=== PATIENT | female | born 1950 | race Caucasian/White ===

== ENCOUNTER → 2018-01-17 13:20 | Outpatient (CLI) | payer OTHER ==
[2016-04-28 12:32] VITALS: BMI 28.5
[~2018-01-17 13:20] MED LIST: CIPRO500 MG PO; COUMADIN5 MG PO; ELIQUIS5 MG PO; FLAGYL500 MG PO; GOLYTELY; HYDROCODONE-APA1 TAB PO; LOVASTATIN20 MG PO; LOVENOX60 MG/0.6 SC; Mevacor PO; NICODERM C1 PATCH .1 TRANSDERM
== END | disposition home or self-care (01) ==
LOC: D.CT 01-14 15:00
DX: I63.9 Cerebral infarction, unspecified (principal)

== ENCOUNTER 2018-02-05 11:15 | Outpatient (CLI) | payer OTHER ==
[~2018-02-05] VITALS: Ht 157.5 cm; Wt 81.8 kg
--- NOTE | ~2018-02-05 | OP ---
PATIENT NAME: SEAN MOLINA MEDICAL RECORD: [id number] :52 LOCATION:D.CAT ADMISSION DATE: SURGEON: BRAXTON SCOTT MD DATE OF OPERATION: 02/05/2018 PROCEDURE: Left heart cath, +4-vessel arteriography, right femoral artery approach. CATHETERS: A 5-Albanian sheath, 5/4 left and right Simon, 5/4 pig. The procedure was well tolerated. The patient returned to sage, sheath removed. Adequate hemostasis was obtained. FINDINGS: Left ventriculography in 30-degree SHIPMAN view: Normal wall motion, normal systolic function. CORONARY ANATOMY. LEFT MAIN: Left main is free of disease. LAD: Free of disease in the diagonal system. CIRCUMFLEX: Free of disease in the marginal system. RIGHT CORONARY ARTERY: Somewhat codominant system, free of disease. The right coronary diagnostic catheter replaced in the right common carotid artery, right common carotid shows no significant stenosis. The right internal carotid is occluded at its origin, right external carotid shows no significant stenosis. Left common carotid shows no significant stenosis. Left external carotid, no significant stenosis. Left internal carotid shows about 50% stenosis in the mid portion. IMPRESSION: 1. Normal coronary anatomy. 2. Normal left ventricular function. 3. Totally occluded right internal carotid artery. 4. A 50% stenosis in left internal carotid, this can be followed longitudinally with a Doppler velocity check for increased velocity across the obstruction. Obviously symptoms warrant ___ intervention at that time. TRANSINT:[id number] Voice Confirmation ID: [id number] DOCUMENT ID: [id number] BRAXTON SCOTT MD at 1325 CC: [id number] DICTATION DATE: 02/05/18 1450 ROUTE DELIVERY MANAGER: 02/05/18 1639 DEP CLI 02/05/18 [facility] [address] [place] [address]
--- NOTE | ~2018-02-05 | HEMODYNAMI ---
PATIENT:SEAN MOLINA MEDICAL RECORD: [id number] : 52 LOCATION:DPoolPAGE ADMISSION DATE: 02/05/18 Generatedon:02/05/201814:57 Patient name: SEAN MOLINA Patient #: [id number] SSN: : 1950 Date of study: 02/05/2018 Page: Of Hemodynamic Procedure Report Patient Data Patient Demographics Procedure consent was obtained First Name: SEAN Gender: Female Last Name: TRACY : 1950 [facility] Initial: [place] Age: 67 year(s) Patient #: [id number] Race: Unknown Additional ID: [id number] Contact details Address: [address] [place] [address] State: [place] City: [place] Zip code: [address] Past Medical History Allergies Allergen Reaction Date Comments Reported Other allergy 02/05/2018 Admission Admission Data Admission Date: 02/05/2018 Admission Time: 11:15 Height (in.): 62 BSA: 1.83 (m2) Height (cm.): 157.48 BMI: 32.92 (kg/m2) Weight (lbs.): 180 Weight (kg.): 81.65 Procedure Procedure Types Cath Procedure Diagnostic Procedure [facility] w/Coronaries Peripheral Cath Diagnostic Procedure 4-Vessel Bilateral Carotid Arteriogram Procedure Description Procedure Date Procedure Date: 02/05/2018 Procedure Start Time: 14:32 Procedure End Time: 14:45 Procedure Staff Name Function Nichole Huston RT Monitor Judi Horowitz RT Scrub Makenzie Vera RN Nurse Isaac Molina MD Performing Physician Procedure Data Cath Procedure Fluoroscopy Diagnostic fluoroscopy Total fluoroscopy Time: 3.4 time: 3.4 min min Diagnostic fluoroscopy Total fluoroscopy dose: 492 dose: 492 mGy mGy Contrast Material Contrast Material Type Amount (ml) Isovue 300 104 Entry Location Entry Primary Successful Side Size Upsize Upsize Entry Closure Succes sful Closure Location (Fr) 1 (Fr) 2 (Fr) Remarks Device Remarks Femoral Right 5 Fr Exoseal artery Estimated blood loss: 10 ml Diagnostic catheters Device Type Used For End Catheter Placement MULTIPACK JL 4.0 5Fr catheter MULTIPACK 3DRC 5Fr Procedure catheter MULTIPACK Pigtail 5 Fr Procedure catheter Procedure Medications Medication Administration Route Dosage Oxygen NC 2 l/min Lidocaine 2% added to field 20 Heparin Flush Bag added to field 2 bags (1000units/500ml NS) 0.9% NaCl I.V. 100 ml/hr Versed I.V. 2 mg Fentanyl I.V. 50 mcg Versed I.V. 2 mg Fentanyl I.V. 50 mcg Versed I.V. 1 mg Fentanyl I.V. 50 mcg Versed I.V. 1 mg Hemodynamics Rest BSA: 1.83 (m2) O2 Consumption: Estimated: 185.69 (ml/min) O2 Consumption indexed : Estimated:101.47 (ml/min/m) Heart Rate: 92 (bpm) Pressure Samples Time Site Value (mmHg) Purpose Heart Use Rate(bpm) 14:42 LV 128/11,14 Snapshot 86 14:42 AO 150/76(109) Pullback 94 Gradients Valve Time Site Site 2 Mean SEP/DFP Peak To Heart Use 1 (mmHg) (sec/min) Peak Rate (mmHg) (bpm) Aortic 14:42 LV AO 94 150/76(109) Snapshots Pre Cath Intra NCS Post Cath Vital Signs Time Heart Resp SPO2 etCO2 NIBP (mmHg) Rhythm Pain Sedation Rate (ipm) (%) (mmHg) Status Level (bpm) 14:27:43 93 18 97 30.8 154/74(117) NSR 0 (11) 10(A) , No pain 14:32:05 88 20 98 27.7 159/73(107) NSR 0 (11) 10(A) , No pain 14:36:29 88 15 94 21 158/65(116) NSR 0 (11) 10(A) , No pain 14:40:55 92 14 96 27 131/65(71) NSR 0 (11) 10(A) , No pain 14:45:09 87 15 98 28.5 146/73(112) NSR 0 (11) 10(A) , No pain 14:51:43 83 15 96 21 123/62(97) NSR 0 (11) 10(A) , No pain Medications Time Medication Route Dose Verified Delivered Reason Notes Effe ctiveness by by 14:27:08 Oxygen NC 2 Santi Buffie used for l/min Isauro Vera RN procedure 14:27:16 Lidocaine 2% added 20ml Santi Santi for local to vial Isauro Box MD anesthetic field 14:27:28 Heparin Flush added 2 Santi Santi used for Bag to bags Isauro Box MD procedure (1000units/500ml field NS) 14:27:36 0.9% NaCl I.V. 100 Santi Buffie Per ml/hr Isauro Vera RN physician 14:30:33 Versed I.V. 2 mg Santi Buffie for Isauro Vera RN sedation 14:30:39 Fentanyl I.V. 50 Santi Buffie for mcg Isauro Vera RN sedation 14:33:59 Versed I.V. 2 mg Santi Buffie for Isauro Vera RN sedation 14:34:03 Fentanyl I.V. 50 Santi Buffie for mcg Isauro Vera RN sedation 14:38:05 Versed I.V. 1 mg Santi Buffie for Isauro Vera RN sedation 14:38:09 Fentanyl I.V. 50 Santi Buffie for mcg Isauro Vera RN sedation 14:41:41 Versed I.V. 1 mg Santi Buffie for Isauro Vera RN sedation Procedure Log Time Note 14:07:00 Diagnostic Cath status Elective 14:07:06 Makenzie Vera RN sent for patient. Start room use. 14:07:07 Time tracking: Regular hours 14:07:12 Plan of Care:Hemodynamics will remain stable., Cardiac rhythm will remain stable., Comfort level will be maintained., Respiratory function will remain adequate., Patient/ family verbilizes understanding of procedure., Procedure tolerated without complication., Recovers from procedure without complications.. 14:08:28 Patient Height : 62 inches 14:08:33 Patient Weight : 180 lbs 14:25:09 Patient received from Pre/Post Procedure Room to [facility] 2 Alert and oriented. Tansferred to table in Supine position. 14:26:26 Warm blankets applied, and randy hugger turned on for patient comfort. 14:26:27 Correct patient and procedure confirmed by team. 14::29 Signed procedure consent form obtained from patient. 14:26:30 ECG and BP/O2 sat monitors applied to patient. 14::31 Vital chart was started 14:26:32 Baseline sample Acquired. 14::41 Rhythm: sinus rhythm 14::45 Full Disclosure recording started 14:27:08 Oxygen 2 l/min NC was administered by Makenzie Vera RN; used for procedure; 14:27:10 H&P Date Dictated: 01/30/2018 Within 30 days and on chart., H&P Addendum completed by physician on day of procedure. (MUST COMPLETE FOR ALL OUTPATIENTS). 14:27:12 Pre-procedure instructions explained to patient. 14:27:16 Lidocaine 2% 20ml vial added to field was administered by Santi Box MD; for local anesthetic; 14:27:28 Heparin Flush Bag (1000units/500ml NS) 2 bags added to field was administered by Santi Box MD; used for procedure; 14::31 Family in waiting room. 14:27:33 Patient NPO since Midnight. 14:27:36 0.9% NaCl 100 ml/hr I.V. was administered by Makenzie Vera RN; Per physician; 14:28:13 Patient allergic to Other allergy 14:28:35 Is the patient allergic to Iodine/contrast media? No. 14:28:40 Was the patient premedicated? Yes 14:28:41 Is patient on blood thinner?Yes 14:28:43 Patient diabetic? No. 14:28:46 Snore? No 14:28:47 Sleep apnea? No 14:28:54 Dentures? Yes Out 14:29:04 IV patent on arrival in left forearm with 0.9% NaCl at KVO. 14:29:18 Lab results completed and on chart. 14:29:24 Right groin area was prepped with chlora-prep and draped in sterile fashion 14::25 Alarms reviewed by R. N. 14:29:25 Sharps counted by scrub and verified by R.N. 14:: Physician paged 14:29:28 Physician arrived 14::28 --------ALL STOP TIME OUT------ 14:29:30 Final Timeout: patient, procedure, and site verified with staff and physician. All members of the team are in agreement. 14::31 Right groin site verified by team. 14:29:37 Physical assessment completed. ASA score P 2 - A patient with mild systemic disease as per Isaac Molina MD. 14:29:41 Sedation plan: IV Moderate Sedation Medication:Versed, Fentanyl 14:29:47 Use device set Femoral Dx 14:29:48 ACIST Syringe (25445) opened to sterile field. 14:29:49 Bag Decanter (2002S) opened to sterile field. 14:29:49 Medline Cath Pack ([id number]) opened to sterile field. 14:29:50 SHEATH 5FR [place] (ECP439) opened to sterile field. 14:29:51 DIAGNOSTIC WIRE .035 260cm J wire (426558) opened to sterile field. 14:29:52 ACIST Hand Control (82754) opened to sterile field. 14:29:52 ACIST Manifold (74236) opened to sterile field. 14:29:53 DIAGNOSTIC Multipack 5Fr catheter set ([id number]) opened to sterile field. 14:29:54 Tegaderm 4 x 4 (1626W) opened to sterile field. 14:29:56 PERCUTANEOUS ENTRY 19GA needle opened to sterile field. 14:30:15 Zero performed for pressure channel P1 14:30:33 Versed 2 mg I.V. was administered by Makenzie Vera RN; for sedation; 14:30:39 Fentanyl 50 mcg I.V. was administered by Makenzie Vera RN; for sedation; 14:32:01 Procedure started. 14:32:51 Local anesthetic to right femoral artery with Lidocaine 2% by Isaac Molina MD.INITIAL ACCESS ONLY 14:33:11 A 5 Fr sheath was inserted into the Right Femoral artery 14:33:25 A MULTIPACK JL 4.0 5Fr catheter was advanced over the wire and used for . 14:33:36 LCA angiography performed. 14:33:59 Versed 2 mg I.V. was administered by Makenzie Vera RN; for sedation; 14:34:03 Fentanyl 50 mcg I.V. was administered by Makenzie Vera RN; for sedation; 14:34:14 Catheter removed. 14:34:25 A MULTIPACK 3DRC 5Fr catheter was advanced over the wire and used for Procedure. 14:34:53 RCA angiography performed. 14:37:31 Right carotid angiography performed. 14:38:05 Versed 1 mg I.V. was administered by Makenzie Vera RN; for sedation; 14:38:09 Fentanyl 50 mcg I.V. was administered by Makenzie Vera RN; for sedation; 14:39:02 Left carotid angiography performed. 14:40:49 Catheter removed. 14:40:59 A MULTIPACK Pigtail 5 Fr catheter was advanced over the wire and used for Procedure. 14:41:03 LV gram done using ANGOLAN 14:41:06 LV angiography performed. 14:41:41 Versed 1 mg I.V. was administered by Makenzie Vera RN; for sedation; 14:42:48 Catheter removed. 14:42:52 EXOSEAL 5Fr (EX500) opened to sterile field. 14:43:04 Sheath removed intact; hemostasis achieved with Exoseal to the Right Femoral artery. 14:43:14 Procedure ended.(Physican Out) 14:43:31 Fluoroscopy time 03.40 minutes. 14:43:36 Fluoroscopy dose: 492 mGy 14:43:36 Flurop Dose total: 492 14:43:46 Contrast amount:Isovue 300 104ml. 14:43:48 Sharps counted by scrub and verified by R.N. 14:43:49 Insertion/operative site no bleeding no hematoma. 14:43:52 Post-op/insertion site Right Femoral artery dressed using a 4 x 4 and Tegaderm. 14:43:53 Post Procedure Pulses reassessed and unchanged 14:43:58 Post-procedure physical assessment completed. ASA score P 2 - A patient with mild systemic disease as per Isaac Molina MD. 14:44:09 Post procedure rhythm: unchanged. 14:44:13 Estimated blood loss: 10 ml 14:44:15 Post procedure instruction explained to patient.Patient verbalizes understanding. 14:44:34 Procedure type changed to Cath procedure, Diagnostic procedure, LHC, LHC w/Coronaries, Peripheral Cath Diagnostic Procedure, 4-Vessel, Bilateral Carotid Arteriogram 14:44:36 Procedure and supply charges have been captured, reviewed, submitted and are correct. 14:45:01 Vital chart was stopped 14:45:01 See physician's report for complete and final results. 14:45:03 Report given to Pre/Post Procedure Room. 14:45:06 Patient transfered to Pre/Post Procedure Room with Stretcher. 14:45:08 Procedure ended. 14:45:08 Full Disclosure recording stopped 14:45:38 End room use (Document Last) Device Usage Item Name Manufacture Quantity Catalog Hospital Part Current Minimal Lot# / Number Charge Number Stock Stock Serial# Code ACIST Acist 1 64016 663436 280108 836140 20 Syringe Medical (31086) Systems Inc Bag Decanter Microtek 1 2001S 360291 44685 415814 5 () Medical Inc. Medline Cath Cardinal 1 [id number] 889299 71085 982837 5 Pack Health ([id number]) SHEATH 5FR Terumo 1 [id number] 890434 712331 952717 40 [place] (HCE444) DIAGNOSTIC St Trip 1 070696 216121 355292 970215 30 WIRE .035 260cm J wire (397276) ACIST Hand Acist 1 25854 983481 786031 255757 5 Control Medical (93519) Systems Inc ACIST Acist 1 64384 701957 594127 445760 5 Manifold Medical (24394) Systems Inc DIAGNOSTIC Cardinal 1 KX2421 587672 85892 517786 30 Multipack Health 5Fr catheter set (TS2917) Tegaderm 4 x 3M 1 1626W 491763 931965 556364 5 4 (1626W) PERCUTANEOUS Cook Medical 1 Q89349 087835 173097 5 ENTRY 19GA needle MULTIPACK JL Cardinal 1 707128 5 4.0 5Fr Health catheter MULTIPACK Cardinal 1 227572 5 3DRC 5Fr Health catheter MULTIPACK Cardinal 1 353874 5 Pigtail 5 Fr Health catheter EXOSEAL 5Fr Cardinal 1 EX500 685849 132922 202225 10 (EX500) Health Signature Audit [place] Stage Time Signature Unsigned Intra-Procedure 02/05/2018 Nichole Huston 2:57:33 PM RT(R) Signatures Monitor : Nichole Huston Signature : RT Date : Time : [facility] [address] [place] [address]
[~2018-02-05 11:15] MED LIST changes: -ELIQUIS5 MG PO; -LOVASTATIN20 MG PO
[2018-02-05] MEDS ORDERED: ELIQUIS5 MG PO (12:07)
[2018-02-05] MEDS ORDERED: LOVASTATIN20 MG PO (12:08)
[2018-02-05 12:14] VITALS: BP 182/93; Ht 157.5 cm; Wt 81.8 kg
[2018-02-05 12:43] LABS: BASOPHILS 0.1 % (0-2); EOSINOPHILS 0.2 % (0-7); HEMATOCRIT 40.3 % (36.0-48.0); HEMOGLOBIN 14.1 g/dL (12-16); IMMATURE GRANULOCYTES 0.2 % (0-5); LYMPHOCYTES 19.5 % (15-50); MCH 33.3 pg (26.0-34.0); MEAN PLATELET VOLUME 10.1 fL (7.4-10.4); PLATELET COUNT 261 10x3/uL (130-400); RBC 4.24 10x6/uL (4.00-5.40); WBC 8.8 10x3/uL (4.8-10.8)
[2018-02-05 12:53] LABS: ANION GAP 17.7 mmol/L (8-16); CARBON DIOXIDE 23.2 mmol/L (21.0-32.0); CREATININE - SERUM 0.9 mg/dL (0.6-1.3); POTASSIUM - SERUM 3.9 mmol/L (3.5-5.1)
== END 2018-02-05 17:00 | disposition home or self-care (01) ==
LOC: D.CATH 11:15
PROVIDERS: Internal Medicine Interventional Cardiology
DX: I20.9 Angina pectoris, unspecified (principal); I65.23 Occlusion and stenosis of bilateral carotid arteries; Z01.812 Encounter for preprocedural laboratory examination

== ENCOUNTER → 2018-08-25 09:42 | Outpatient (CLI) | payer OTHER ==
[2018-02-05 12:14] VITALS: BMI 33.0
[~2018-08-25 09:42] MED LIST changes: +ELIQUIS5 MG PO; +LOVASTATIN20 MG PO
== END | disposition home or self-care (01) ==
LOC: D.US 09:42
DX: I65.23 Occlusion and stenosis of bilateral carotid arteries (principal)

== ENCOUNTER → 2019-03-10 18:20 | Outpatient (CLI) | payer OTHER ==
[2018-02-05 12:14] VITALS: BMI 33.0
== END | disposition home or self-care (01) ==
LOC: D.MAMMO 03-04 13:00
PROVIDERS: ATTEND Family Medicine
DX: Z12.31 Encounter for screening mammogram for malignant neoplasm of breast (principal)

== ENCOUNTER → 2019-09-16 09:15 | Outpatient (CLI) | payer OTHER ==
[2018-02-05 12:14] VITALS: BMI 33.0
== END | disposition home or self-care (01) ==
LOC: D.US 09-08 09:00
PROVIDERS: ATTEND Thoracic Surgery (Cardiothoracic Vascular Surgery)
DX: I65.23 Occlusion and stenosis of bilateral carotid arteries (principal)